=== PATIENT | male | born 1980 | race Caucasian/White ===

== ENCOUNTER → 2020-11-16 10:41 | Outpatient (CLI) | payer OTHER, MEDICAID, SELFPAY ==
--- NOTE | 2020-11-16 10:47 | DI.CT.S_ITS ---
PROCEDURE: CT CHEST ABD PEL WO CON INDICATIONS: F/u pulmonary nodules, diverticulosis TECHNIQUE: After the administration of oral contrast, 5 mm thick sections acquired from the lung apices to the symphysis pubis. 5 mm thick coronal and sagittal reformats acquired, with additional 7 mm coronal MIP reformats through the lungs. For radiation dose reduction, the following was used: automated exposure control, adjustment of mA and/or kV according to patient size. COMPARISON: None available. FINDINGS: Image quality: Excellent. CHEST: Lungs and pleura: A few small pulmonary nodules. For example: -right minor fissure 4 mm, (3/175). -left upper lobe 3 mm, (3/93). -left lower lobe 4 mm, (2/63). -left lower lobe 5 mm, (2/68). No acute pulmonary opacities. A few tiny distal mucus airway plugs. No pleural effusions or pneumothorax. Central and peripheral airways are patent are normal in caliber. Mediastinum: Heart size is normal. Trace pericardial fluid. No mediastinal adenopathy by CT size criteria. Thoracic aorta and central pulmonary arteries are normal in size. Esophagus is normal in caliber. No hiatal hernia. Chest wall: No axillary or supraclavicular adenopathy by size criteria. Thyroid gland is unremarkable. ABDOMEN: Note: Evaluation of the solid parenchymal organs is limited without IV contrast. Solid organs: Liver is normal in size. Gallbladder is decompressed. No calcified gallstones. Pancreas is normal in contours. Spleen is normal in size. No adrenal nodules. Both kidneys are normal in size, without hydronephrosis or nephrolithiasis. Peritoneum and bowel: Stomach is distended with food residue. No small bowel obstruction. Scattered colonic diverticuli. There may be minimal stranding adjacent to the sigmoid colon, (2/119). Question of thickening of the sigmoid colon. Fluid collection. No pneumoperitoneum or free air. Nodes and vessels: No retroperitoneal or mesenteric adenopathy by size criteria. Aorta and inferior vena cava are normal in size. Miscellaneous: No ventral hernias. PELVIS: Genitourinary: Bladder wall thickness is normal. Miscellaneous: Suspect small fat containing inguinal hernias. No adenopathy. Bones: No suspicious bony lesions. No vertebral body compression fractures. IMPRESSION: 1. Question of minimal fat stranding adjacent to the sigmoid colon. This raises the possibility of mild diverticulitis. No fluid collection or free air. 2. Colonic diverticulosis. Questionable thickening of the sigmoid colon. -This could be further evaluated with colonoscopy if clinically indicated. 3. Small scattered pulmonary nodules measuring 5 mm or less. -Recommend correlation with prior CT when available. -Follow-up CT in 12 months could be considered especially if high risk. Dictated by: Navid Olmos M.D. on 11/18/2020 at 14:41 Approved by: Navid Olmos M.D. on 11/18/2020 at 15:12
== END ==
PROVIDERS: PCP Student in an Organized Health Care Education/Training Program; Referring Provider Student in an Organized Health Care Education/Training Program; Visit Provider Student in an Organized Health Care Education/Training Program
DX: R91.8 Other nonspecific abnormal finding of lung field (principal); K57.90 Diverticulosis of intestine, part unspecified, without perforation or abscess without bleeding
CPT/HCPCS: 71250; 74176